=== PATIENT | female | born 1945 | race African-American/Black ===

== ENCOUNTER 2023-04-23 14:07 | Outpatient (CLI) | payer MEDICAID | END 2023-04-23 14:08 | disposition home or self-care (01) | LOC: BICMAMMO 14:07 | DX: Z12.31 Encounter for screening mammogram for malignant neoplasm of breast (principal); Z80.3 Family history of malignant neoplasm of breast | CPT/HCPCS: 77063; 77067 ==

== ENCOUNTER 2023-05-05 10:00 | Observation (INO) | payer MEDICARE, MEDICAID ==
[2023-05-05 11:10] VITALS: BMI 39.9
[2023-05-05 12:44] LABS: #Basophils 0.1 10x3/uL (0.0-0.2); #Eosinphils 0.2 10x3/uL (0.0-0.5); #Monocytes 0.4 10x3/uL (0.0-1.1); #Neutrophils 1.9 10x3/uL (1.5-8.4); %Basophils 1.6 % (0.0-2.0); %Eosinophils 4.2 % (0.0-6.0); %Lymphocytes 43.9 % (18.0-47.0); %Monocytes 8.9 % (0.0-10.0); %Neutrophils 41.2 % (40.0-75.0); Hematocrit 44.9 % (34.9-44.5); Hemoglobin 14.5 g/dL (12.0-15.5); Mean Corpuscular HGB CONC 32.3 g/dL (32.0-36.0); Mean Corpuscular Hemoglobin 30.6 pg (27.0-33.0); Mean Corpuscular Volume 94.7 fl (81.6-98.3); Mean Platelet Volume 10.2 fl (7.4-10.4); Platelet Count 220 10x3/uL (150-450); Red Blood Cell (RBC) Count 4.74 10x6/uL (3.90-5.03); White Blood Cell (WBC) Count 4.5 10x3/uL (3.5-10.5)
[2023-05-05 12:56] LABS: Bilirubin Neg (Negative); Blood, Urine Negative (Negative); Glucose, Urine (Dipstick) Normal (Negative); Ketone, Urine Negative (Negative); Leukocyte Negative (Negative); Nitrite Negative (Negative); Protein, Urine (Dipstick) Negative (Neg-Trace); Specific Gravity, Urine 1.005 (1.005-1.030); Urobilinogen Normal mg/dL (Less than 2)
[2023-05-05 12:57] LABS: Prothrombin Time 10.3 sec (9.5-12.1)
[2023-05-05 13:00] LABS: Anion Gap 11 mmol/L (10-20); BUN (Urea Nitrogen) 15 mg/dL (9.8-20.1); Calc. Creatinine Clearance 0 mL/min (70-130); Calcium 9.6 mg/dL (7.8-10.44); Carbon Dioxide 29 mmol/L (23-31); Chloride 104 mmol/L (98-107); Estimated GFR 76; Glucose 81 mg/dL (83-110); Potassium 4.3 mmol/L (3.5-5.1); Sodium 140 mmol/L (136-145)
[2023-05-05 13:01] LABS: Clarity Clear (Clear)
[2023-05-10] MEDS ORDERED: Tranexamic Acid 1,000 MG/10 ML VIAL ONE (07:30)
[2023-05-10] MEDS ORDERED: Sodium Chloride 0.9% 100 ML ONE ×2 (07:30→09:22)
[2023-05-10] MEDS ORDERED: Vancomycin (BATCH) 1.5 GM/300 ML BAG ONE (07:31)
[2023-05-10] MEDS ORDERED: Midazolam HCl 2 mg/2 ml Vial ONE (07:53)
[2023-05-10] MEDS ORDERED: Bupivacaine PF 0.5% 30 ML VIAL ONE ×2 (07:53→09:14)
[2023-05-10] MEDS ORDERED: fentaNYL 50 mcg/mL 1 mL Vial ONE ×2 (07:53→12:31)
[2023-05-10] MEDS ORDERED: Dexamethasone 4 mg/ml Vial ONE ×2 (08:48→09:56)
[2023-05-10] MEDS ORDERED: PROPOFOL 20 ML ONE (08:49)
[2023-05-10] MEDS ORDERED: fentaNYL PF 100 MCG/2 ML SYRINGE ONE (08:49)
[2023-05-10] MEDS ORDERED: Bupivacaine HCl 0.5%/Epinephrine 1:200,000/PF 30 ml Vial ONE (08:50)
[2023-05-10] MEDS ORDERED: methylPREDNISolone Acetate 40 mg/ml Vial ONE (09:14)
[2023-05-10] MEDS ORDERED: Lidocaine 1% (PF) 30 ML VIAL ONE (09:14)
[2023-05-10] MEDS ORDERED: CEFAZOLIN 2 GM VIAL ONE (09:22)
[2023-05-10] MEDS ORDERED: Ondansetron PF 4 MG/2 ML Vial ONE (09:56)
[2023-05-10] MEDS ORDERED: fentaNYL 50 mcg/mL 1 mL Vial SLOW IVP PRN (10:20)
[2023-05-10] MEDS ORDERED: Ropivacaine 0.2% 550 ML 550 ML NERVE BLCK SCH (10:30)
[2023-05-10] MEDS ORDERED: Promethazine HCl 25 MG/ML VIAL IM PRN ×2 (10:30→12:00)
[2023-05-10] MEDS ORDERED: Ondansetron PF 4 MG/2 ML Vial IVP PRN ×2 (10:30→12:00)
[2023-05-10] MEDS ORDERED: HYDROcodone/Acetaminophen 10/325 mg Tablet PO PRN (10:30)
[2023-05-10] MEDS ORDERED: Ketorolac Tromethamine 30 MG (1 mL) VIAL ONE (11:27)
[2023-05-10] MEDS ORDERED: Zolpidem Tartrate 5 MG TAB PO PRN (12:00)
[2023-05-10] MEDS ORDERED: diphenhydrAMINE 25 MG CAP PO PRN (12:00)
[2023-05-10] MEDS ORDERED: Albuterol 200 PUFF (6.7GM INHALER) INH PRN (12:02)
[2023-05-10] MEDS ORDERED: Fluticasone Propionate Nasal Spray 16 gm Bottle NASAL PRN (12:02)
[2023-05-10] MEDS ORDERED: Melatonin 3 MG TAB PO PRN (12:41)
[2023-05-10] MEDS: Tranexamic Acid 1,000 MG in Sodium Chloride 0.9% 100 ML IVPB SCH (13:57)
[2023-05-10] MEDS: Ketorolac Tromethamine 30 MG (1 mL) VIAL IVP SCH (13:57)
[2023-05-10] MEDS: Sodium Chloride 0.9% 1,000 ML IV SCH (13:57)
[2023-05-10] MEDS ORDERED: HumaLOG 300 UNITS/3 ML VIAL SC PRN ×2 (14:38)
[2023-05-10] MEDS ORDERED: Dextrose 50% Abboject 50 ML SYRINGE SLOW IVP PRN (14:38)
[2023-05-10] MEDS ORDERED: Dextrose 5% in Water 1,000 ML IV PRN (14:38)
[2023-05-10] MEDS ORDERED: Glucagon 1 MG/ML KIT IM PRN (14:38)
[2023-05-10] MEDS: CEFAZOLIN 2 GM in Sodium Chloride 0.9% 100 ML IVPB SCH (17:29)
[2023-05-10] MEDS: Gabapentin 300 MG CAP PO SCH (21:22)
[2023-05-10] MEDS: Ferrous Gluconate 324 MG TAB PO SCH (21:22)
[2023-05-10] MEDS: Vancomycin (BATCH) 2 GM in Premix 1 BAG IVPB SCH (21:22)
[2023-05-10] MEDS: Aspirin 81 mg Enteric Coated Tablet PO SCH (21:23)
[2023-05-10] MEDS: Montelukast Sodium 10 mg Tablet PO SCH (21:24)
[2023-05-10] MEDS: Zolpidem Tartrate 5 MG TAB PO PRN (21:24)
[2023-05-10] MEDS: Atorvastatin Calcium 10 MG TAB PO SCH (21:24)
[2023-05-10] MEDS: Senokot S 8.6-50 MG TAB PO SCH (21:24)
[2023-05-11 00:10] LABS: Influenza A by NAA Not Detected (NotDetected); Influenza B by NAA Not Detected (NotDetected); RSV by NAA Not Detected (NotDetected); SARS-CoV-2 NAA Rapid Test Not Detected (NotDetected)
[2023-05-11 04:57] LABS: Hematocrit 37.6 % (36.0-47.0); Hemoglobin 12.3 g/dL (12.0-16.0); Mean Corpuscular HGB CONC 32.7 g/dL (32.0-36.0); Mean Corpuscular Hemoglobin 31.1 pg (27.0-31.0); Mean Corpuscular Volume 95.2 fl (78.0-98.0); Mean Platelet Volume 10.1 fL (7.4-10.4); Platelet Count 194 10x3/uL (130-400); Red Blood Cell (RBC) Count 3.95 mill/uL (4.20-5.40); White Blood Cell (WBC) Count 7.8 10x3/uL (4.8-10.8)
[2023-05-11 05:08] LABS: Hemoglobin A1c 5.8 % (4.0-6.0)
[2023-05-11 05:27] LABS: ALT (SGPT) 10 U/L (8-55); AST (SGOT) 11 U/L (5-34); Albumin 3.3 g/dL (3.4-4.8); Alkaline Phosphatase 78 U/L (40-110); Anion Gap 13 mmol/L (10-20); BUN (Urea Nitrogen) 28 mg/dL (9.8-20.1); Bilirubin, Direct 0.2 mg/dL (0.1-0.3); Bilirubin, Total 0.4 mg/dL (0.2-1.2); Calc. Creatinine Clearance 102 mL/min (70-130); Calcium 8.9 mg/dL (7.8-10.44); Carbon Dioxide 20 mmol/L (23-31); Cardiac Risk 2.3 (Less than 4.5); Chloride 107 mmol/L (98-107); Cholesterol 167 mg/dl (< 200 Desired); Estimated GFR 75; Glucose 198 mg/dL (83-110); HDL Cholesterol 74 mg/dL (>60 Neg Risk); LDL Cholesterol, Calculated 83 mg/dL; Magnesium 1.8 mg/dL (1.6-2.6); Protein, Total 5.9 g/dL (5.8-8.1); Sodium 136 mmol/L (136-145); Triglycerides 49 mg/dL (Less than 150)
[2023-05-11 06:46] LABS: Legionella Urinary Ag Negative (Negative)
[2023-05-11] MEDS: Losartan 25 MG TAB PO SCH (10:20)
[2023-05-11] MEDS: BuPROPion XL 150 MG ER.TAB PO SCH (10:21)
[2023-05-11] MEDS: Alogliptin 25 MG TAB PO SCH (10:22)
[2023-05-11] MEDS: Loratadine 10 MG TAB PO SCH (10:26)
[2023-05-11] MEDS: Amlodipine 5 MG TAB PO SCH (10:26)
[2023-05-11] MEDS: Multivitamin W/ Minerals 1 TAB PO SCH (10:27)
[2023-05-11] MEDS: Acetaminophen 325 MG TAB PO PRN (10:34)
[2023-05-11] MEDS: traMADol HCl 50 MG TAB PO PRN (10:35)
[2023-05-11] MEDS: HYDROcodone/Acetaminophen 10/325 mg Tablet PO PRN (22:00)
[2023-05-12 04:39] LABS: Hematocrit 31.6 % (36.0-47.0); Hemoglobin 10.4 g/dL (12.0-16.0); Mean Corpuscular HGB CONC 32.9 g/dL (32.0-36.0); Mean Corpuscular Hemoglobin 31.7 pg (27.0-31.0); Mean Corpuscular Volume 96.3 fl (78.0-98.0); Mean Platelet Volume 10.2 fL (7.4-10.4); Platelet Count 162 10x3/uL (130-400); RBC Distribution Width 13.4 % (11.5-14.5); Red Blood Cell (RBC) Count 3.28 mill/uL (4.20-5.40); White Blood Cell (WBC) Count 7.6 10x3/uL (4.8-10.8)
[2023-05-12 05:11] LABS: Anion Gap 10 mmol/L (10-20); BUN (Urea Nitrogen) 34 mg/dL (9.8-20.1); Calc. Creatinine Clearance 96 mL/min (70-130); Calcium 8.7 mg/dL (7.8-10.44); Carbon Dioxide 24 mmol/L (23-31); Chloride 109 mmol/L (98-107); Estimated GFR 70; Glucose 149 mg/dL (83-110); Magnesium 2.1 mg/dL (1.6-2.6); Potassium 4.1 mmol/L (3.5-5.1); Sodium 139 mmol/L (136-145)
[2023-05-12] MEDS: traMADol HCl 50 MG TAB PO PRN (09:05)
[2023-05-12 12:22] VITALS: BP 120/75; TEMP 97.8
[2023-05-13 22:39] LABS: Mycoplasma pneumoniae IgG AB 111 U/mL (0-99); Mycoplasma pneumoniae IgM AB 1164 U/mL (0-769)
== END 2023-05-12 16:13 | disposition home or self-care (01) ==
LOC: INTOOBSV 05-10 06:24 → SURG A 05-10 06:24 → SJJU 05-10 13:53
PROVIDERS: ADMIT Orthopaedic Surgery; ATTEND Orthopaedic Surgery
PROC: 3E0U3GC Introduction of Other Therapeutic Substance into Joints, Percutaneous Approach (ICD-10-PCS; principal; 2023-05-10)
PROC: 0SRD0JZ Replacement of Left Knee Joint with Synthetic Substitute, Open Approach (ICD-10-PCS; 2023-05-10)
DX: M17.0 Bilateral primary osteoarthritis of knee (principal); E11.9 Type 2 diabetes mellitus without complications; I10 Essential (primary) hypertension; E66.9 Obesity, unspecified; E78.5 Hyperlipidemia, unspecified; F17.200 Nicotine dependence, unspecified, uncomplicated; R91.1 Solitary pulmonary nodule; F32.A Depression, unspecified; Z88.8 Allergy status to other drugs, medicaments and biological substances
CPT/HCPCS: 0241U; 20610; 27447; 71045; 71250; 80048 ×3; 80061; 80076; 81003; 82962 ×2; 83036; 83735 ×2; 83880; 84443; 85025; 85027 ×2; 85610; 86738; 86850 ×2; 86900 ×2; 86901 ×2; 87081; 87899; 93005; 97110 ×2; 97116 ×3; 97530 ×2; A4306; C1713; C1776; J3010; J3370 ×2; 36415; 36416; 93010; J0665; J1030; J1100; J1885; J2001; J2250; J2405; J2704; J2795; J3490

== ENCOUNTER 2023-05-05 10:39 | Outpatient (CLI) | payer MEDICARE, MEDICAID ==
[2023-05-05 12:44] LABS: #Basophils 0.1 10x3/uL (0.0-0.2); #Eosinphils 0.2 10x3/uL (0.0-0.5); #Monocytes 0.4 10x3/uL (0.0-1.1); #Neutrophils 1.9 10x3/uL (1.5-8.4); %Basophils 1.6 % (0.0-2.0); %Eosinophils 4.2 % (0.0-6.0); %Lymphocytes 43.9 % (18.0-47.0); %Monocytes 8.9 % (0.0-10.0); %Neutrophils 41.2 % (40.0-75.0); Hematocrit 44.9 % (34.9-44.5); Hemoglobin 14.5 g/dL (12.0-15.5); Mean Corpuscular HGB CONC 32.3 g/dL (32.0-36.0); Mean Corpuscular Hemoglobin 30.6 pg (27.0-33.0); Mean Corpuscular Volume 94.7 fl (81.6-98.3); Mean Platelet Volume 10.2 fl (7.4-10.4); Platelet Count 220 10x3/uL (150-450); Red Blood Cell (RBC) Count 4.74 10x6/uL (3.90-5.03); White Blood Cell (WBC) Count 4.5 10x3/uL (3.5-10.5)
[2023-05-05 12:56] LABS: Bilirubin Neg (Negative); Blood, Urine Negative (Negative); Glucose, Urine (Dipstick) Normal (Negative); Ketone, Urine Negative (Negative); Leukocyte Negative (Negative); Nitrite Negative (Negative); Protein, Urine (Dipstick) Negative (Neg-Trace); Specific Gravity, Urine 1.005 (1.005-1.030); Urobilinogen Normal mg/dL (Less than 2)
[2023-05-05 12:57] LABS: Prothrombin Time 10.3 sec (9.5-12.1)
[2023-05-05 13:00] LABS: Anion Gap 11 mmol/L (10-20); BUN (Urea Nitrogen) 15 mg/dL (9.8-20.1); Calc. Creatinine Clearance 0 mL/min (70-130); Calcium 9.6 mg/dL (7.8-10.44); Carbon Dioxide 29 mmol/L (23-31); Chloride 104 mmol/L (98-107); Estimated GFR 76; Glucose 81 mg/dL (83-110); Potassium 4.3 mmol/L (3.5-5.1); Sodium 140 mmol/L (136-145)
[2023-05-05 13:01] LABS: Clarity Clear (Clear)
== END 2023-05-05 10:40 | disposition home or self-care (01) ==
LOC: LABBT 10:39
PROVIDERS: ATTEND Orthopaedic Surgery
DX: Z01.818 Encounter for other preprocedural examination (principal); M17.0 Bilateral primary osteoarthritis of knee
CPT/HCPCS: 71046; 80048; 81003; 85025; 85610; 86850; 86900; 86901; 87081; 93005; 93010

== ENCOUNTER 2024-01-05 09:28 | Outpatient (CLI) | payer MEDICARE, MEDICAID ==
[2024-01-05 11:07] LABS: #Basophils 0.09 10x3/uL (0.0-0.2); %Eosinophils 6.8 % (0.0-10.0); %Lymphocytes 40.6 % (21.0-51.0); %Monocytes 9.5 % (0.0-10.0); %Neutrophils 40.9 % (42.0-75.0); Hemoglobin 14.1 g/dL (12.0-16.0); Mean Corpuscular Hemoglobin 31.1 pg (27.0-31.0); Mean Corpuscular Volume 96.9 fL (78.0-98.0); Mean Platelet Volume 10.2 fL (7.4-10.4); Platelet Count 205 10x3/uL (130-400); Red Blood Cell (RBC) Count 4.54 mill/uL (4.20-5.40)
[2024-01-05 11:24] LABS: Prothrombin Time 13.2 sec (12.0-14.7)
[2024-01-05 11:30] LABS: Anion Gap 12 mmol/L (10-20); BUN (Urea Nitrogen) 13 mg/dL (9.8-20.1); Calc. Creatinine Clearance 0 mL/min (70-130); Calcium 9.4 mg/dL (7.8-10.44); Carbon Dioxide 28 mmol/L (23-31); Chloride 105 mmol/L (98-107); Estimated GFR 82; Glucose 88 mg/dL (83-110); Potassium 4.1 mmol/L (3.5-5.1); Sodium 141 mmol/L (136-145)
[2024-01-05 13:48] LABS: Bilirubin Negative (Negative); Blood, Urine Negative (Negative); Clarity Clear (Clear); Glucose, Urine (Dipstick) Normal (Negative); Ketone, Urine Negative (Negative); Leukocyte 25 Leu/uL (Negative); Nitrite Negative (Negative); Protein, Urine (Dipstick) Negative (Neg-Trace); Specific Gravity, Urine 1.011 (1.002-1.036); Urobilinogen Normal mg/dL (Less than 2)
== END 2024-01-05 09:29 | disposition home or self-care (01) ==
LOC: LABBT 09:28
PROVIDERS: ATTEND Orthopaedic Surgery
DX: Z01.818 Encounter for other preprocedural examination (principal); M17.11 Unilateral primary osteoarthritis, right knee; R00.1 Bradycardia, unspecified
CPT/HCPCS: 71046; 80048; 81003; 85025; 85610; 87081; 93005; 93010

== ENCOUNTER 2024-01-05 10:53 | Outpatient (CLI) | payer OTHER | END 2024-01-05 10:54 | disposition home or self-care (01) | LOC: CT 10:53 | PROVIDERS: ATTEND Orthopaedic Surgery | DX: M17.11 Unilateral primary osteoarthritis, right knee (principal); Z98.890 Other specified postprocedural states ==

== ENCOUNTER 2024-01-12 06:21 | Inpatient (IN) | payer MEDICARE, MEDICAID ==
[2024-01-05 09:40] VITALS: BMI 41.1
[2024-01-12] MEDS ORDERED: Tranexamic Acid 1,000 MG/10 ML VIAL ONE ×2 (06:57→14:06)
[2024-01-12] MEDS ORDERED: Vancomycin (BATCH) 1.5 GM/300 ML BAG ONE (06:58)
[2024-01-12] MEDS ORDERED: Sodium Chloride 0.9% 100 ML ONE ×2 (06:58→07:06)
[2024-01-12] MEDS ORDERED: PROPOFOL 20 ML ONE (06:58)
[2024-01-12] MEDS ORDERED: Lidocaine 1% PF 5 ML VIAL ONE (06:58)
[2024-01-12] MEDS ORDERED: Ipratropium/Albuterol 3 ML NEB ONE (07:05)
[2024-01-12] MEDS ORDERED: CEFAZOLIN 2 GM VIAL ONE (07:06)
[2024-01-12] MEDS ORDERED: Bupivacaine 0.25% HCL 30 ML VIAL ONE (07:06)
[2024-01-12] MEDS ORDERED: fentaNYL 50 mcg/mL 1 mL Vial ONE ×6 (07:18→13:45)
[2024-01-12] MEDS ORDERED: Bupivacaine HCl 0.5%/Epinephrine 1:200,000/PF 30 ml Vial ONE (07:40)
[2024-01-12] MEDS ORDERED: fentaNYL 50 mcg/mL 1 mL Vial SLOW IVP PRN (07:57)
[2024-01-12] MEDS ORDERED: Promethazine HCl 25 MG/ML VIAL IM PRN ×2 (08:00→10:28)
[2024-01-12] MEDS ORDERED: Ondansetron PF 4 MG/2 ML Vial IVP PRN ×2 (08:00→10:28)
[2024-01-12] MEDS ORDERED: Ropivacaine 0.2% 550 ML 550 ML NERVE BLCK SCH (08:00)
[2024-01-12] MEDS ORDERED: traMADol HCl 50 MG TAB PO PRN (08:00)
[2024-01-12] MEDS ORDERED: Ondansetron PF 4 MG/2 ML Vial ONE (08:10)
[2024-01-12] MEDS ORDERED: Dexamethasone 20 MG/5 ML VIAL ONE (08:10)
[2024-01-12] MEDS ORDERED: PHENYLEPHRINE-NS 100 MCG/ML 10 ML SYRINGE ONE (08:14)
[2024-01-12] MEDS ORDERED: Phenylephrine 10 MG/ML VIAL ONE (08:19)
[2024-01-12] MEDS ORDERED: Sevoflurane 250 ML INH ANEST BOTTLE ONE (09:08)
[2024-01-12] MEDS ORDERED: Ketorolac Tromethamine 30 MG (1 mL) VIAL ONE ×2 (09:51→12:39)
[2024-01-12] MEDS ORDERED: Zolpidem Tartrate 5 MG TAB PO PRN (10:28)
[2024-01-12] MEDS ORDERED: Fluticasone Propionate Nasal Spray 16 gm Bottle NASAL PRN (10:29)
[2024-01-12] MEDS ORDERED: Tranexamic Acid 1,000 MG in Sodium Chloride 0.9% 100 ML IVPB SCH (10:30)
[2024-01-12] MEDS: Ketorolac Tromethamine 30 MG (1 mL) VIAL IVP SCH (12:42)
[2024-01-12] MEDS: Sodium Chloride 0.9% 1,000 ML IV SCH (16:46)
[2024-01-12] MEDS: CEFAZOLIN 2 GM in Sodium Chloride 0.9% 100 ML IVPB SCH (17:31)
[2024-01-12] MEDS: Vancomycin (BATCH) 1.5 GM in Premix 1 BAG IVPB SCH (20:12)
[2024-01-12] MEDS: Atorvastatin Calcium 10 MG TAB PO SCH (20:13)
[2024-01-12] MEDS: Ferrous Gluconate 324 MG TAB PO SCH (20:13)
[2024-01-12] MEDS: Gabapentin 300 MG CAP PO SCH (20:14)
[2024-01-12] MEDS: Aspirin 81 mg Enteric Coated Tablet PO SCH (20:14)
[2024-01-12] MEDS: BuPROPion XL 150 MG ER.TAB PO SCH (20:14)
[2024-01-12] MEDS: Senokot S 8.6-50 MG TAB PO SCH (20:14)
[2024-01-12] MEDS: HYDROcodone/Acetaminophen 10/325 mg Tablet PO PRN (20:14)
[2024-01-12] MEDS: Zolpidem Tartrate 5 MG TAB PO PRN (20:14)
[2024-01-12] MEDS: Montelukast Sodium 10 mg Tablet PO SCH (20:15)
[2024-01-12] MEDS: Timolol 0.25% Ophth Soln 5 ml Bottle EA EYE SCH (20:15)
[2024-01-13 05:31] LABS: Hematocrit 35.8 % (36.0-47.0); Hemoglobin 11.4 g/dL (12.0-16.0); Mean Corpuscular HGB CONC 31.8 g/dL (32.0-36.0); Mean Corpuscular Hemoglobin 31.1 pg (27.0-31.0); Mean Corpuscular Volume 97.5 fL (78.0-98.0); Mean Platelet Volume 9.5 fL (7.4-10.4); Platelet Count 218 10x3/uL (130-400); RBC Distribution Width 13.4 % (11.5-14.5); Red Blood Cell (RBC) Count 3.67 mill/uL (4.20-5.40)
[2024-01-13] MEDS: Amlodipine 5 MG TAB PO SCH (08:52)
[2024-01-13] MEDS: Alogliptin 25 MG TAB PO SCH (08:52)
[2024-01-13] MEDS: Multivitamin W/ Minerals 1 TAB PO SCH (08:53)
[2024-01-13] MEDS: tiZANidine HCl 4 MG TAB PO SCH (08:53)
[2024-01-13] MEDS: Losartan 25 MG TAB PO SCH (08:53)
[2024-01-13] MEDS ORDERED: ROCKLATAN EA EYE SCH (09:00)
[2024-01-13] MEDS ORDERED: EYE DRP EA EYE SCH (09:00)
[2024-01-13] MEDS: Albuterol 2.5 MG (3 mL) NEB NEB PRN (09:19)
[2024-01-13] MEDS: HYDROcodone/Acetaminophen 10/325 mg Tablet PO PRN (21:00)
[2024-01-14 05:09] LABS: Hematocrit 31.7 % (36.0-47.0); Hemoglobin 9.9 g/dL (12.0-16.0); Mean Corpuscular HGB CONC 31.2 g/dL (32.0-36.0); Mean Corpuscular Hemoglobin 31.1 pg (27.0-31.0); Mean Corpuscular Volume 99.7 fL (78.0-98.0); Mean Platelet Volume 9.7 fL (7.4-10.4); Platelet Count 175 10x3/uL (130-400); RBC Distribution Width 13.7 % (11.5-14.5); Red Blood Cell (RBC) Count 3.18 mill/uL (4.20-5.40)
[2024-01-14] MEDS: FLU (Fluad Triv) TS24-25 (65UP)/MF59C/PF 45 MCG/0.5 ML Syringe IM ONE (11:26)
[2024-01-14] MEDS: Acetaminophen 325 MG TAB PO PRN (16:21)
[2024-01-14] MEDS: traMADol HCl 50 MG TAB PO PRN (16:22)
[2024-01-15 05:13] LABS: Hematocrit 31.3 % (36.0-47.0); Hemoglobin 9.7 g/dL (12.0-16.0); Mean Platelet Volume 9.6 fL (7.4-10.4); Platelet Count 164 10x3/uL (130-400); RBC Distribution Width 13.7 % (11.5-14.5); Red Blood Cell (RBC) Count 3.13 mill/uL (4.20-5.40)
[2024-01-15] MEDS: diphenhydrAMINE 25 MG CAP PO PRN (22:19)
[2024-01-16 04:28] LABS: Hematocrit 30.9 % (36.0-47.0); Hemoglobin 9.8 g/dL (12.0-16.0); Mean Corpuscular HGB CONC 31.7 g/dL (32.0-36.0); Mean Corpuscular Hemoglobin 31.8 pg (27.0-31.0); Mean Corpuscular Volume 100.3 fL (78.0-98.0); Mean Platelet Volume 9.6 fL (7.4-10.4); Platelet Count 174 10x3/uL (130-400); RBC Distribution Width 13.5 % (11.5-14.5); Red Blood Cell (RBC) Count 3.08 mill/uL (4.20-5.40)
[2024-01-16 07:58] VITALS: BP 125/82; TEMP 98
== END 2024-01-16 11:58 | disposition home health service (06) | DRG 470 ==
LOC: SDC 06:21 → SURG B 10:31 → OBSVTOIN 01-13 13:27
PROVIDERS: ADMIT Orthopaedic Surgery; ATTEND Orthopaedic Surgery
PROC: 0SRC0J9 Replacement of Right Knee Joint with Synthetic Substitute, Cemented, Open Approach (ICD-10-PCS; principal; 2024-01-12)
PROC: 8E0Y0CZ Robotic Assisted Procedure of Lower Extremity, Open Approach (ICD-10-PCS; 2024-01-12)
DX: M17.11 Unilateral primary osteoarthritis, right knee (principal); Z68.41 Body mass index [BMI] 40.0-44.9, adult; Z96.652 Presence of left artificial knee joint; E78.5 Hyperlipidemia, unspecified; E66.9 Obesity, unspecified; E11.9 Type 2 diabetes mellitus without complications; F17.200 Nicotine dependence, unspecified, uncomplicated; D64.9 Anemia, unspecified; I10 Essential (primary) hypertension; Z98.51 Tubal ligation status; Z79.84 Long term (current) use of oral hypoglycemic drugs; Z79.899 Other long term (current) drug therapy; Z79.891 Long term (current) use of opiate analgesic; Z88.8 Allergy status to other drugs, medicaments and biological substances
CPT/HCPCS: 36415; 36416; 85027; 94640; 96374; 96375; 96376; A4306; C1713; C1776; C1889; G0378; J0665; J1100; J1885; J2371; J2405; J2704; J2795; J3010; J3370; J7030; J7611; J7620